=== PATIENT | female | born 1985 | race Caucasian/White ===

== ENCOUNTER 2018-02-17 23:04 | Inpatient (IN) | payer OTHER ==
[~2018-02-17] VITALS: Ht 162.6 cm; Wt 74.4 kg
[~2018-02-17 23:04] MED LIST: CLC100 PO; FRRS300 PO; MTR600X PO; PREN1TAB29
[2018-02-22] MEDS ORDERED: LACTATED RINGER'S 1000ML 1,000 ML IV SCH ×2 (08:46→14:56)
[2018-02-22] MEDS ORDERED: LACTATED RINGER'S 1000ML 1,000 ML IV PRN (08:46)
[2018-02-22 09:11] LABS: HEMATOCRIT 35.1 % (37-47); HEMOGLOBIN 11.4 g/dL (12.0-16.0); MEAN CELL VOLUME 80.3 fL (80-100); MEAN CORPUSCULAR HEMOGLOBIN 26.1 pg (25-34); MEAN CORPUSCULAR HGB CONC 32.5 g/dl (32-36); MEAN PLATELET VOLUME 11.2 fL (7.4-10.4); PLATELET COUNT 227 K/uL (130-400); RED CELL DISTRIBUTION WIDTH CV 13.9 % (11.5-14.5); WHITE BLOOD COUNT 12.05 K/uL (4.8-10.8)
[2018-02-22] MEDS ORDERED: BUPIVACAINE 0.25% 30 ML VIAL ONE (09:15)
[2018-02-22] MEDS ORDERED: FENTANYL 2MCG/ML ROPIV 1.25MG/ML 100ML BAG ONE (09:16)
[2018-02-22] MEDS ORDERED: FENTANYL CITRATE INJ 50 MCG/1 ML 2 ML VIAL ONE (09:16)
[2018-02-22] MEDS ORDERED: EpHEDrine SULFATE INJ 50 MG/ML AMP ONE (09:16)
--- NOTE | 2018-02-22 09:21 | Progress Note ---
Progress Note Date of Service Feb 22, 2018. Progress Note Admit Note 32 F P2002 at 39.5 weeks admitted in active labor. She is a TOLAC and delivered vaginally with her last . Cervix now 5/80/-3/vertex. GBS negative. FHT Cat 1. Will admit and patient requesting epidural for pain. Anticipate normal vaginal delivery.
[2018-02-22] MEDS ORDERED: NALOXONE HCL INJ 1 MG in SODIUM CHLORIDE 0.9% 1000ML 1,000 ML IV PRN (10:12)
[2018-02-22] MEDS ORDERED: LACTATED RINGER'S 1000ML 500 ML IV PRN (10:12)
[2018-02-22] MEDS ORDERED: EpHEDrine SULFATE INJ 50 MG/ML AMP IV PRN (10:15)
[2018-02-22] MEDS ORDERED: NALBUPHINE HCL INJ 10 MG/ML 1ML AMP IV PRN (10:15)
[2018-02-22] MEDS ORDERED: DiphenhydrAMINE HCL 50 MG/ML VIAL IV PRN (10:15)
[2018-02-22] MEDS ORDERED: FENTANYL 2MCG/ML ROPIV 1.25MG/ML 100ML BAG EPI PRN (10:15)
[2018-02-22] MEDS ORDERED: NALOXONE HCL INJ 0.4 MG/1 ML VIAL/CARP IV PRN (10:15)
[2018-02-22] MEDS ORDERED: ONDANSETRON INJ 2 MG/ML 2 ML VIAL IV STA (11:08)
[2018-02-22 11:38] VITALS: Ht 162.6 cm; Wt 74.4 kg
[2018-02-22] MEDS ORDERED: OXYTOCIN 30 UNITS/500ML NSS IV ONE (13:46)
[2018-02-22] MEDS ORDERED: SUPERCREAM 0.870 % 15GM JAR EXT PRN (15:00)
[2018-02-22] MEDS ORDERED: BENZOCAINE 20% AER SPR 82.5 GM CAN EXT PRN (15:00)
[2018-02-22] MEDS ORDERED: DIPHTHERIA/TETANUS/PERTUSSIS 0.5 ML SYR/VIAL IM. ONE (15:00)
[2018-02-22] MEDS ORDERED: OXYTOCIN 30 UNITS/500ML NSS IV PRN (15:00)
[2018-02-22] MEDS ORDERED: HYDROCORTISONE ACETATE 25 MG SUPP PR PRN (15:00)
[2018-02-22] MEDS ORDERED: ACETAMINOPHEN 325 MG TAB PO PRN (15:00)
[2018-02-22] MEDS ORDERED: LANOLIN OINT EXT PRN (15:00)
--- NOTE | 2018-02-22 15:07 | Vaginal Delivery Summary ---
Vaginal Delivery Summary () live male over intact perineum with tight nuchal cord x1 reduced at delivery of head AYAH with Apgars 8/9 weight 7-15.5 delayed cord clamping followed by cord blood and spontaneous delivery of intact placenta. Small 1st degree tear repaired with 3/0 Vicryl suture. EBL 250 ml. Final sponge, needle and instrument count are correct. Mom and baby stable.
--- NOTE | 2018-02-22 16:12 | Anesthesia Procedure Note ---
Anesthesia Epidural Removal Nt Date & Time Feb 22, 2018 at 16:12 Notes Mental Status: alert / awake / arousable, participated in evaluation Nausea / Vomiting: adequately controlled Pain: adequately controlled Airway Patency, RR, SpO2: stable & adequate BP & HR: stable & adequate Hydration State: stable & adequate Neuraxial Anesthesia: was administered Anesthetic Complications: no major complications apparent, pt satisfied with anesthetic care Epidural: removed without complications, with tip intact
[2018-02-22 17:15] VITALS: BP 104/66; PULSE 89; TEMP 36.4
[2018-02-22 20:20] VITALS: BP 103/69; PULSE 86; TEMP 36.9
[2018-02-22] MEDS: DOCUSATE SODIUM 100 MG CAP PO SCH (21:34)
[2018-02-22] MEDS: IBUPROFEN 600 MG TAB PO PRN (21:35)
[2018-02-22 23:50] VITALS: BP 100/62; PULSE 79; TEMP 36.9
[2018-02-23 03:05] VITALS: BP 106/69; PULSE 87; TEMP 36.7
[2018-02-23] MEDS: IBUPROFEN 600 MG TAB PO PRN ×3 (03:15→22:25)
[2018-02-23 07:08] LABS: HEMATOCRIT 31.3 % (37-47); HEMOGLOBIN 9.9 g/dL (12.0-16.0)
[2018-02-23 08:00] VITALS: BP 100/66; PULSE 87; TEMP 36.6
[2018-02-23] MEDS: FERROUS SULFATE 325 MG TAB PO SCH (08:24)
[2018-02-23] MEDS: DOCUSATE SODIUM 100 MG CAP PO SCH ×2 (08:24→19:28)
--- NOTE | 2018-02-23 08:29 | OB/GYN Progress Note ---
[facility] D[employer]IT[employer]ER Progress Note Date of Service: Feb 23, 2018. Patient is seen and examined. She feels well, no complaints. Ambulating without dizziness Voiding without difficulty Tolerating regular diet with out N&V Bleeding is minimal No fever/ chills/ CP/ SOB/ N&V/ Leg pain Breast feeding without problems Date Time Temp Pulse Resp B/P (MAP) Pulse Ox O2 Delivery O2 Flow Rate FiO2 02/23/18 03:05 36.7 87 18 106/69 (81) Room Air 02/22/18 23:50 Room Air 02/22/18 23:50 36.9 79 18 100/62 (75) Room Air 02/22/18 20:20 36.9 86 18 103/69 (80) Room Air 02/22/18 17:15 36.4 89 18 104/66 (79) Room Air 02/22/18 17:15 Room Air Last 24 Hours Test 02/22/18 08:56 02/23/18 06:53 White Blood Count 12.05 K/uL Red Blood Count 4.37 M/uL Hemoglobin 11.4 g/dL 9.9 g/dL Hematocrit 35.1 % 31.3 % Mean Corpuscular Volume 80.3 fL Mean Corpuscular Hemoglobin 26.1 pg Mean Corpuscular Hemoglobin Concent 32.5 g/dl RDW Standard Deviation 41.0 fL RDW Coefficient of Variation 13.9 % Platelet Count 227 K/uL Mean Platelet Volume 11.2 fL PE: General: Alert, orientedx3, NAD Abd: soft, NT, fundus firm, below Umbilicus Perineum intact, Lochia rubra minimal Ext; NT, no edema AP: 32 yo s/p , ppd# 1 VSS Afebrile doing well Continue routine care All questions were answered D/C home in am
--- NOTE | 2018-02-23 08:30 | Discharge Instructions ---
Discharge Instructions Date of Service Feb 23, 2018. Admission Reason for Admission: IUP Discharge Discharge Diagnosis / Problem: Discharge Goals Goal(s): Routine recovery after delivery Medications Continue Dispensed Medications: lansinoh, other Activity Recommendations Activity Limitations: as noted below ACTIVITY RECOMMENDATIONS: * Gradual return to full activity over the next 2-3 weeks. * No lifting - nothing heavier than baby over the next 2-3 weeks. * Do not engage in vigorous exercise, sexual activity or sports until cleared by your physician. * Do not drive or operate any motorized equipment until cleared by your physician. * You may shower/bathe daily. BREAST CARE: If you are not breast feeding: * Wear a supportive bra 24 hours a day for one to two weeks. * Avoid stimulating your breasts and nipples as much as possible during the first few weeks after delivery. * When taking a shower, have the warm water hit your back, not breasts. * When your breasts feel full, apply ice packs. Usually three to four times a day helps ease the discomfort. * Take a mild pain medication (Tylenol/Motrin) when you are uncomfortable. If breast feeding: * Use breast milk to lubricate nipples. Lansinoh cream may be used for sore nipples. You do not need to remove cream prior to breast feeding. If using a different brand of cream, check the label for directions regarding removal of cream prior to nursing. * Wear a supportive bra. * If having problems with breasts or breast feeding, call a digital marketing consultant or your health care provider. EPISIOTOMY CARE: After delivery, if you have an episiotomy (stitches), the following steps will ease discomfort and aid healing. * For the first 24 hours after delivery, place ice packs next to your episiotomy to help reduce swelling. * After the first 24 hour-period, sitz baths, either portable or in the tub, are suggested. A shower with a shower arm sprayed over the episiotomy may be comforting. * Yue care should be done after each voiding and bowel movement. Squirt warm water from a plastic bottle over the perineum (region of the body between the anus and urinary opening) and pat dry. * Use Dermoplast to ease discomfort. Shake container. [place] directly over the episiotomy. * Place a Tucks on a clean sanitary pad next to your episiotomy. OVER THE COUNTER MEDICATION: * For discomfort or pain, you may use Acetaminophen (Tylenol), Ibuprofen (Advil ), or Naproxen (Aleve) following the package directions. * For constipation you may use Colace following the package directions. SPECIAL CARE INSTRUCTIONS: When you are discharged from the hospital, it is important for you to follow the instructions listed below: * During the first week at home, you should be able to care for yourself and your baby. In addition, the usual light household activities are encouraged. * Limit your activities to the way you feel. Do not try to clean the house or move furniture. Be sensible. * If you actively engage in sports and have done so up until the time of your delivery, you may resume these activities as soon as you feel able. This may take up to one month or even longer. Use good judgment. * Continue to take your vitamins for at least six weeks after the of your baby. * Your diet need not be limited unless you were on a special diet before your delivery. Breast-feeding mothers need around 2500 calories per day and at least 64-80 ounces of fluid per day (8 to 10 glasses). * You should eat foods from the four major food groups. Crash diets or fad diets are to be avoided. Eating lean meats, fresh fruits and vegetables, low-fat dairy products, high fiber foods and a regular exercise program, will help you get back to your pre- weight without putting your health at risk. * Constipation is sometimes a problem after delivery. Take a mild laxative as needed. If breast feeding, Milk of Magnesia is acceptable to use. You may use a suppository or Fleets enema if no episiotomy. * A daily shower or tub bath is suggested. Be sure to thoroughly and gently dry the perineum. * A bloody vaginal discharge will usually continue until around four weeks post . A small amount of bleeding may continue for as long as six weeks. Vaginal discharge changes from the bright red bleeding after delivery to pink then brownish and finally yellowish-pink before becoming white and disappearing. * Bleeding may increase with activity. Your first period may come in 4-8 weeks. If you are breast feeding, your period may be delayed even longer. * [place] (sex) can begin whenever both you and your partner feel comfortable and do not have any form of genital infection. It is recommended that you wait until after your return appointment and discuss with your physician. If you have questions, please talk to your health care practitioner. A condom should be used to prevent infection and . * Foreplay, gentle intercourse and lubrication is very important the first several times to prevent pain. A water-based lubricant such as K-Y jelly or Astroglide may be used. * Tampons may be used six weeks after delivery. * Douching should be avoided for 6 weeks after delivery. * If you have RH negative blood and your baby is RH positive, you will receive RHOGAM by injection prior to discharge. The nurse will give you a card to keep with you that has the date and place that you received RHOGAM after delivery. * During your care, you had a Rubella screen done to check for the presence of rubella antibodies in your blood. If your test was negative, you will receive a Rubella vaccine prior to discharge. This vaccine may cause a fever, soreness at the injection site and flu-like symptoms. If these symptoms persist, notify your health care practitioner. is not advised for three months after a Rubella vaccine. There is a higher chance of having a baby with defects if conceived within three months of getting the vaccine. * If you were discharged 24 hours from delivery or before 48 hours: Visiting nurses will come to your home 48 hours after discharge to assess you and your baby. The visiting nurse will meet with you while you are in the hospital to arrange a time and get directions to your home. * Verbalizes understanding of car seat law as reviewed with patient nursing. * Car Seat hand-out given and reviewed with patient by nursing. * Shaken baby information reviewed with patient by nursing. Call you doctor if: * Heavy bleeding (saturating several pads an hour) or passing clots the size of your fist. * A fever >101 degrees F (38.3 degrees C) on two occasions four hours apart and/or chills. * Unusual pain in the pelvic or vaginal areas. * "Baby Blues" lasting longer than two weeks. If you have any questions or concerns, call your health care practitioner at . FOLLOW-UP VISIT: * Please call the office at to schedule a 6 week examination. It is important you keep this appointment. * It is important for you to make arrangements for either yearly or twice yearly check-ups thereafter. . Current Hospital Diet Patient's current hospital diet: Regular OB Diet Discharge Diet Recommended Diet: Regular Diet Pending Studies Studies pending at discharge: no Medical Emergencies . Who to Call and When: Medical Emergencies: If at any time you feel your situation is an emergency, please call 911 immediately. . Non-Emergent Contact Non-Emergency issues call your: Purification Director Call Non-Emergent contact if: temperature is above 100.5, your pain is not controlled, your pain is worsening . . "Provider Documentation" section prepared by Masoud Foster. .
[2018-02-23 12:30] VITALS: BP 92/59; PULSE 80; TEMP 36.6
[2018-02-23 15:35] VITALS: BP 107/71; PULSE 71; TEMP 36.6; O2SAT 97
[2018-02-23] MEDS ORDERED: BISACODYL 5 MG TABEC PO SCH (20:00)
[2018-02-24 00:05] VITALS: BP 105/65; PULSE 75; TEMP 36.8; O2SAT 95
[2018-02-24] MEDS: IBUPROFEN 600 MG TAB PO PRN ×2 (04:29→09:20)
--- NOTE | 2018-02-24 06:22 | OB/GYN Progress Note ---
LPN CARE MANAGER Progress Note Date of Service: Feb 24, 2018. Patient is seen and examined. She feels well, no complaints. Ambulating without dizziness Voiding without difficulty Tolerating regular diet with out N&V Bleeding is minimal No fever/ chills/ CP/ SOB/ N&V/ Leg pain Breast feeding without problems Date Time Temp Pulse Resp B/P (MAP) Pulse Ox O2 Delivery O2 Flow Rate FiO2 02/24/18 00:05 36.8 75 16 105/65 (78) 95 Room Air 02/24/18 00:05 95 Room Air 02/23/18 15:35 36.6 71 18 107/71 (83) 97 Room Air 02/23/18 15:35 Room Air 02/23/18 12:30 36.6 80 20 92/59 (70) 02/23/18 08:00 36.6 87 20 100/66 (77) Last 24 Hours Test 02/23/18 06:53 Hemoglobin 9.9 g/dL Hematocrit 31.3 % PE: General: Alert, orientedx3, NAD Abd: soft, NT, fundus firm, below Umbilicus Perineum intact, Lochia rubra minimal Ext; NT, no edema AP: 32 yo s/p , ppd# 2 VSS Afebrile doing well Continue routine care All questions were answered Discussed when to call D/C home , f/u in office
[2018-02-24] MEDS ORDERED: BISACODYL 10 MG SUPP PR PRN (07:00)
[2018-02-24 08:00] VITALS: BP 100/66; PULSE 74; TEMP 36.4
[2018-02-24] MEDS: FERROUS SULFATE 325 MG TAB PO SCH (09:18)
[2018-02-24] MEDS: DOCUSATE SODIUM 100 MG CAP PO SCH (09:18)
[2018-02-24 11:45] VITALS: BP_DIAS 66; PULSE 74; TEMP 36.4
== END 2018-02-24 12:00 | disposition home or self-care (01) | DRG 775 ==
LOC: C.LD 02-22 07:10 → C.OBG 02-22 17:19
PROVIDERS: ADMIT Obstetrics & Gynecology; ATTEND Obstetrics & Gynecology
PROC: 0HQ9XZZ Repair Perineum Skin, External Approach (ICD-10-PCS; principal; 2018-02-22)
PROC: 10E0XZZ Delivery of Products of Conception, External Approach (ICD-10-PCS; principal; 2018-02-22)
DX: O69.81X0 Labor and delivery complicated by cord around neck, without compression, not applicable or unspecified (principal); O70.0 First degree perineal laceration during delivery; Z3A.39 39 weeks gestation of pregnancy; Z37.0 Single live birth

== ENCOUNTER 2020-05-10 07:16 | Inpatient (IN) ==
[2020-05-10] MEDS ORDERED: OXYTOCIN 30 UNITS/500 ML BAG IV PRN (10:53)
[2020-05-10] MEDS ORDERED: miSOPROStoL 200 MCG TAB PV ONE (10:53)
[2020-05-10] MEDS ORDERED: LACTATED RINGER'S 1,000 ML IV PRN (10:53)
[2020-05-10 11:22] LABS: Hematocrit (blood only) 36.2 % (37-47); Hemoglobin 12.2 g/dL (12.0-16.0); Mean Corpuscular Hemoglobin 28.8 pg (25-34); Mean Corpuscular Volume 85.6 fL (80-100); Mean Platelet Volume 10.5 fL (7.4-10.4); Platelet Count 264 K/uL (130-400); RDW Coefficient of Variation 13.5 % (11.5-14.5); Red Blood Count 4.23 M/uL (4.2-5.4); White Blood Count 8.72 K/uL (4.8-10.8)
[2020-05-10 12:01] LABS: Mean Corpuscular Hgb Conc 33.7 g/dL (32-36)
--- NOTE | 2020-05-10 12:50 | Obstetrical Progress Note ---
Date of Service May 10, 2020 Assessment & Plan Admission and Anticipated Discharge Date Admission Date: May 10, 2020 Subjective Admit Note 35 F P3003 at 17.1 weeks admitted for induction of labor for IUFD. Cervix is closed and thick. Cytotec 600 mcg placed vaginally for induction. Will get rapid Covid. Results & Data ([facility]) Vital Signs (Past 12 Hours) Vital Signs Temp Pulse Resp BP 05/10/20 12:09 80 110/70 05/10/20 11:58 36.7 C 80 18 110/70 05/10/20 10:45 36.8 C 83 18 120/70
[2020-05-10] MEDS: miSOPROStoL 200 MCG TAB PV SCH ×2 (19:23→23:17)
--- NOTE | 2020-05-10 19:28 | Obstetrical Progress Note ---
Date of Service May 10, 2020 Assessment & Plan Admission and Anticipated Discharge Date Admission Date: May 10, 2020 Physical Exam Genitourinary: Manual OB Exam: + cervical dilation 1 cm, + cervical effacement 40% and + station high Cytotec 400 mcg placed vaginally Results & Data ([facility]) Vital Signs (Past 12 Hours) Vital Signs Temp Pulse Resp BP 05/10/20 19:16 37.2 C 83 18 119/71 05/10/20 18:35 37.1 C 20 05/10/20 15:50 37.1 C 77 20 111/66 05/10/20 12:09 80 110/70 05/10/20 11:58 36.7 C 80 18 110/70 05/10/20 10:45 36.8 C 83 18 120/70
[2020-05-10] MEDS ORDERED: miSOPROStoL 200 MCG TAB PV SCH (20:00)
--- NOTE | 2020-05-10 23:20 | Obstetrical Progress Note ---
Date of Service May 10, 2020 Assessment & Plan Admission and Anticipated Discharge Date Admission Date: May 10, 2020 Physical Exam Genitourinary: Manual OB Exam: + cervical dilation 1 cm, + cervical effacement 50% and + station high OB Exam Monitor Tracing: + external uterine monitor used Cytotec 400 mcg placed vaginally Results & Data ([facility]) Vital Signs (Past 12 Hours) Vital Signs Temp Pulse Resp BP 05/10/20 22:01 37.3 C 63 18 104/60 05/10/20 19:16 37.2 C 83 18 119/71 05/10/20 18:35 37.1 C 20 05/10/20 15:50 37.1 C 77 20 111/66 05/10/20 12:09 80 110/70 05/10/20 11:58 36.7 C 80 18 110/70
--- NOTE | 2020-05-11 00:58 | Delivery Summary ---
Vaginal Delivery Summary Date of Service May 11, 2020 Vaginal Delivery Summary 35 F P0000 at 17 weeks with IUFD delivered a stillborn female intact. No apparent cause for demise was noted on gross exam of fetus. On vaginal exam the placenta was noted to be in the cervical canal and was removed intact. Small portion of the placenta was remved for genetic testing. final sponge and instrument count correct. EBL 50 ml. Mom stable.
[2020-05-11] MEDS ORDERED: ACETAMINOPHEN 325 MG TAB PO PRN (01:21)
[2020-05-11] MEDS ORDERED: HYDROCORTISONE ACETATE 25 MG SUPP PR PRN (01:21)
[2020-05-11] MEDS ORDERED: bisacodyL 10 MG SUPP PR PRN (01:21)
[2020-05-11] MEDS ORDERED: DIPHTHERIA/TETANUS/PERTUSSIS 0.5 ML SYR/VIAL IM ONE (01:21)
[2020-05-11] MEDS ORDERED: OXYTOCIN 30 UNITS/500 ML BAG IV PRN (01:21)
[2020-05-11] MEDS ORDERED: SUPERCREAM 0.870% 15 GM JAR EXT PRN (01:21)
[2020-05-11] MEDS ORDERED: BENZOCAINE 20% AER SPR 82.5 GM CAN EXT PRN (01:21)
[2020-05-11] MEDS ORDERED: IBUPROFEN 600 MG TAB PO PRN (01:21)
[2020-05-11] MEDS ORDERED: ONDANSETRON 4 MG OD TAB PO PRN (01:33)
[2020-05-11] MEDS: miSOPROStoL 200 MCG TAB PV SCH (03:00)
[2020-05-11 06:39] LABS: Hematocrit (blood only) 35.1 % (37-47); Hemoglobin 11.8 g/dL (12.0-16.0); Mean Corpuscular Hemoglobin 28.6 pg (25-34); Mean Corpuscular Hgb Conc 33.6 g/dL (32-36); Mean Corpuscular Volume 85.2 fL (80-100); Mean Platelet Volume 10.5 fL (7.4-10.4); Platelet Count 266 K/uL (130-400); RDW Coefficient of Variation 13.3 % (11.5-14.5); RDW Standard Deviation 41.3 fL (36.4-46.3); Red Blood Count 4.12 M/uL (4.2-5.4); White Blood Count 10.77 K/uL (4.8-10.8)
--- NOTE | 2020-05-11 07:29 | Obstetrical Progress Note ---
Date of Service May 11, 2020 Assessment & Plan Admission and Anticipated Discharge Date Admission Date: May 10, 2020 Subjective Doing fine out of bed tolerating diet Physical Exam Constitutional: WD/WN, vitals as above comfortable for discharge Results & Data ([facility]) Vital Signs (Past 12 Hours) Vital Signs Temp Pulse Resp BP 05/11/20 07:02 36.8 C 77 20 100/63 05/11/20 02:46 37.3 C 87 18 97/64 L 05/11/20 02:32 92 H 91/55 L 05/11/20 02:16 84 18 93/58 L 05/11/20 02:05 82 107/66 05/11/20 01:46 91 H 18 113/74 05/11/20 01:31 100 H 18 114/73 05/11/20 01:17 91 H 18 107/67 05/11/20 01:01 76 18 109/68 05/11/20 00:46 85 18 109/61 05/10/20 22:01 37.3 C 63 18 104/60
[2020-05-11] MEDS ORDERED: PRENATAL VITAMIN 1 TAB PO SCH (08:00)
[2020-05-11] MEDS ORDERED: DOCUSATE SODIUM 100 MG CAP PO SCH (08:00)
[2020-05-12] MEDS ORDERED: bisacodyL 5 MG TABEC PO SCH (20:00)
--- NOTE | 2020-05-15 14:21 | Discharge Summary (DS) ---
REASON FOR ADMISSION AND HOSPITAL COURSE: The patient is a 35-year-old female at 17 weeks with an intrauterine demise. The patient received Cytotec for induction delivering a stillborn female infant. No obvious cause of is discernible. The placenta was submitted to pathology for evaluation and a portion of the placenta was submitted for genetic testing. The patient did well and there were no complications, has been discharged 05/11/2020. Home going instructions were given and reviewed. Motrin for pain. Follow up in the office in 2 weeks and a regular diet on discharge. FINAL DISCHARGE DIAGNOSIS: 17 weeks intrauterine demise.
== END 2020-05-11 09:10 | disposition home or self-care (01) | DRG 807 ==
LOC: 4S1 10:31